=== PATIENT | male | born 1990 | race Caucasian/White ===

== ENCOUNTER → 2016-06-18 | Outpatient (CLI) | payer OTHER ==
--- NOTE | 2016-06-18 15:46 | DX ---
Left knee, 5 views. HISTORY: Persistent pain after trauma. FINDINGS: There is a vertical lucent line through the lateral aspect of the left patella. While this could represent an ossification variant, imaging features are worrisome for a mildly displaced fractu re, including adjacent soft tissue swelling. Correlation with pain in this region is recommended, as an acute fracture would be expected to be painful and an ossification variant asymptomatic. Study otherwise normal. Joint spaces are maintained. There is a large suprapatellar knee joint effusi on. IMPRESSION: 1. Vertical lucent line through the lateral aspect of the patella, suspicious for a mildly displaced fracture (versus ossification variant). Associated soft tissue swelling and knee joint effusion.
== END ==
LOC: BMCIMAGING 14:06
PROVIDERS: ATTEND Internal Medicine
DX: S89.92XA Unspecified injury of left lower leg, initial encounter (principal); V00.321A Fall from snow-skis, initial encounter; Y93.23 Activity, snow (alpine) (downhill) skiing, snowboarding, sledding, tobogganing and snow tubing

== ENCOUNTER → 2016-07-02 | Outpatient (CLI) | payer OTHER ==
--- NOTE | 2016-07-02 15:36 | DX ---
Left knee series 3 views 1317 hours. History: Follow-up patellar fracture. Trauma on June 02, 2016. Findings: Comparison to June 18, 2016. There has been interval resorption at the fracture line along the lateral aspect of the patella. Ther e is no osseous bridging appreciated at this time. Soft tissue swelling has decreased. No additional fractures are evident. The knee joint space is normal. Mild effusion remains in the suprapatellar bur sa decreased since the prior study. Impression: 1. There has been some resorption involving the fracture lateral patella without definite bridging ap preciated at this time. This could represent an early osteoclastic/reparative healing component. Cons ider continued follow-up. 2. Decrease in mild effusion suprapatellar bursa
== END ==
LOC: BMCIMAGING 13:18
PROVIDERS: ATTEND Physician Assistant
DX: S82.022A Displaced longitudinal fracture of left patella, initial encounter for closed fracture (principal); M25.462 Effusion, left knee

== ENCOUNTER → 2016-09-26 | Outpatient (CLI) | payer OTHER | LOC: BMCIMAGING 10:32 | PROVIDERS: ATTEND Family Medicine | DX: S82.002D Unspecified fracture of left patella, subsequent encounter for closed fracture with routine healing (principal) ==